=== PATIENT | male | born 1950 | race Caucasian/White ===

== ENCOUNTER → 2018-03-30 | Outpatient (CLI) | payer MEDICARE, OTHER | LOC: M EKG 14:30 | DX: Z01.818 Encounter for other preprocedural examination (principal); K44.9 Diaphragmatic hernia without obstruction or gangrene | CPT/HCPCS: 93005 ==

== ENCOUNTER 2018-04-02 08:02 | Day surgery (SDC) | payer MEDICARE, OTHER ==
[2018-04-02] MEDS ORDERED: MIDAZOLAM INJ 2 MG/2 ML VIAL (J2250) As Ordered (09:05)
[2018-04-02] MEDS ORDERED: PROPOFOL 200 MG/20 ML VIAL As Ordered (09:05)
[2018-04-02] MEDS ORDERED: dexameTHASONE 4 MG/ML 1ML VIAL (J1100) As Ordered (09:05)
[2018-04-02] MEDS ORDERED: LIDOCAINE 2% INJ 100 MG/5 ML SDV (FOR ANES.) As Ordered (09:05)
[2018-04-02] MEDS ORDERED: ROCURONIUM BROMIDE 50 MG/5 ML VIAL As Ordered ×2 (09:05→11:04)
[2018-04-02] MEDS ORDERED: fentaNYL 250 MCG/5 ML INJECTION (J3010) As Ordered (09:05)
[2018-04-02] MEDS ORDERED: ONDANSETRON 4MG/2ML VIAL (J2405) As Ordered (09:05)
[2018-04-02] MEDS: LR 1,000 ML IV (09:50)
[2018-04-02] MEDS: ceFAZolin SOD 1 GM in D5W MINI-BAG PLUS 50 ML IV (10:30)
[2018-04-02] MEDS ORDERED: ePHEDrine SULFATE 25 MG/5 ML(5MG/ML) SYRINGE As Ordered (10:44)
[2018-04-02] MEDS: BUPIVACAINE/EPIN 0.25% 30 ML VIAL As Ordered (11:01)
[2018-04-02] MEDS ORDERED: GLYCOPYRROLATE INJ 0.2 MG/ML 2 ML VIAL As Ordered (11:11)
[2018-04-02] MEDS ORDERED: KETOROLAC 60 MG/2 ML VIAL (J1885) As Ordered (11:20)
[2018-04-02] MEDS ORDERED: NEOSTIGMINE 10 MG/10 ML VIAL (J2710) As Ordered (11:20)
[2018-04-02] MEDS ORDERED: HYDROmorphone HCL 2 MG/ML 1ML VIAL (J1170) As Ordered (11:21)
[2018-04-02] MEDS ORDERED: NORCO, ANEXSIA 5/325MG TABLET (HYDROcodone/ACETAMINOPHEN) PO (12:30)
[2018-04-02] MEDS ORDERED: fentaNYL 100 MCG/2 ML INJECTION (J3010) IV ×2 (12:30→16:00)
[2018-04-02] MEDS ORDERED: LR 1,000 ML IV ×3 (12:30→16:00)
[2018-04-02] MEDS ORDERED: PERCOCET 5MG/325MG TAB PO ×2 (12:30→16:00)
[2018-04-02] MEDS: ONDANSETRON 4MG/2ML VIAL (J2405) IV (12:37)
[2018-04-02] MEDS ORDERED: ONDANSETRON 4MG/2ML VIAL (J2405) IV ×2 (12:45→16:00)
[2018-04-02] MEDS ORDERED: METOCLOPRAMIDE INJ 10MG/2ML VIAL (J2765) As Ordered ×2 (12:47→15:55)
[2018-04-02] MEDS ORDERED: METOCLOPRAMIDE INJ 10MG/2ML VIAL (J2765) IV ×2 (13:15→16:00)
== END 2018-04-02 17:25 | disposition home or self-care (01) ==
LOC: M SDC 08:02
DX: K40.90 Unilateral inguinal hernia, without obstruction or gangrene, not specified as recurrent (principal); K44.9 Diaphragmatic hernia without obstruction or gangrene
CPT/HCPCS: 49650

== ENCOUNTER → 2018-09-22 | Outpatient (CLI) | payer MEDICARE, OTHER ==
[~2018-09-22] MED LIST: /ESOM40CA; ALLE10TA2 PO; VICO5TAB
[2018-09-22 19:17] LABS: BLOOD UREA NITROGEN 15 MG/DL (7-18); CALCIUM LEVEL 9.3 MG/DL (8.8-10.2); CARBON DIOXIDE LEVEL 32 MEQ/L (21-32); CHLORIDE LEVEL 102 MEQ/L (98-107); CREATININE FOR GFR 1.08 MG/DL (0.70-1.30); GLOMERULAR FILTRATION RATE > 60.0 (>49); GLUCOSE, FASTING 81 MG/DL (70-100); HEMATOCRIT 48.1 % (42.0-52.0); MEAN CORPUSCULAR HEMOGLOBIN 30.7 pg (27.0-33.0); MEAN CORPUSCULAR HGB CONC 33.3 g/dl (32.0-36.5); MEAN CORPUSCULAR VOLUME 92.1 fl (80.0-96.0); PLATELET COUNT, AUTOMATED 271 10^3/uL (150-450); POTASSIUM SERUM 4.4 MEQ/L (3.5-5.1); RED BLOOD COUNT 5.22 10^6/uL (4.30-6.10); SODIUM LEVEL 140 MEQ/L (136-145); WHITE BLOOD COUNT 7.9 10^3/uL (4.0-10.0)
[2018-09-22 19:25] LABS: INR 1.01; PROTHROMBIN TIME 13.4 SECONDS (12.1-14.4)
[2018-09-22 19:26] LABS: PARTIAL THROMBOPLASTIN TIME 35.4 SECONDS (25.4-37.6)
--- NOTE | 2018-09-23 07:47 | REP ---
Clinical: Preoperative assessment . Comparison: 11/05/2009 . Technique: PA and lateral. Findings: The mediastinum and cardiac silhouette are normal. Airway is patent and midline. The lung acuna are clear and without acute consolidation, effusion, or pneumothorax. The skeletal structures are intact and normal. Impression: 1. No acute cardiopulmonary process. Electronically Signed by Evaristo Ovalles MD 09/22/2018 02:14 P
== END ==
LOC: M SMT 13:31
PROVIDERS: ATTEND Nurse Practitioner Family
DX: Z01.818 Encounter for other preprocedural examination (principal); N47.1 Phimosis

== ENCOUNTER 2018-10-07 11:33 | Day surgery (SDC) | payer MEDICARE, OTHER ==
[~2018-10-07] VITALS: Ht 170.2 cm; Wt 82.6 kg
[~2018-10-07 11:33] MED LIST changes: -/ESOM40CA; -ALLE10TA2 PO; +LORA-753 PO; +LR 1,000 ML IV SCH; +NEXI1CAP3
[2018-10-07] MEDS ORDERED: PROPOFOL 200 MG/20 ML VIAL As Ordered ONE (13:15)
[2018-10-07] MEDS ORDERED: METOCLOPRAMIDE INJ 10MG/2ML VIAL (J2765) As Ordered ONE (13:15)
[2018-10-07] MEDS ORDERED: LIDOCAINE 2% INJ 100 MG/5 ML SDV (FOR ANES.) As Ordered ONE (13:15)
[2018-10-07] MEDS ORDERED: MIDAZOLAM INJ 2 MG/2 ML VIAL (J2250) As Ordered ONE (13:16)
[2018-10-07] MEDS ORDERED: fentaNYL 100 MCG/2 ML INJECTION (J3010) As Ordered ONE (13:16)
[2018-10-07] MEDS ORDERED: BACITRACIN OINT 30GM As Ordered ONE (13:32)
[2018-10-07] MEDS ORDERED: KETOROLAC 60 MG/2 ML VIAL (J1885) As Ordered ONE (14:43)
[2018-10-07] MEDS ORDERED: HYDROMORPHONE HCL 0.5 MG/ 0.5 ML SYRINGE (J1170 PER 1) IV PRN (15:45)
[2018-10-07] MEDS ORDERED: LR 1,000 ML IV SCH (15:45)
[2018-10-07] MEDS ORDERED: NORCO, ANEXSIA 5/325MG TABLET (HYDROcodone/ACETAMINOPHEN) PO PRN (15:45)
[2018-10-07] MEDS ORDERED: PERCOCET 5MG/325MG TAB PO PRN (15:45)
[2018-10-07] MEDS ORDERED: ONDANSETRON 4MG/2ML VIAL (J2405) IV PRN (15:45)
--- NOTE | 2018-10-07 15:47 | ROOPDOC ---
[facility] Report Of Operation Report of Operation DATE OF PROCEDURE: 10/07/18 PREPROCEDURE DIAGNOSIS: Phimosis. POSTPROCEDURE DIAGNOSIS: Phimosis. OPERATIVE PROCEDURE: Circumcision. SURGEON: Keysha Saldivar MD POUNCING [employer]HE OPERATOR: None. ANESTHESIA: General OPERATIVE INDICATIONS: This is a 67-year-old male with phimosis making it difficult for him to retract his foreskin. He was brought to the operating room today for the above listed procedure. DESCRIPTION OF PROCEDURE: The patient was brought to the operating room and general anesthesia was induced. Prophylactic antibiotics were then infused. He was then placed in the supine position in preparation for the circumcision. At this point, circumcision incisions were made at the level of the coronal sulcus with the foreskin completely retracted downwards as well as on the outside of the foreskin with it pulled over the glans of penis. The circumcising incisions were then connected using electrocautery. All the foreskin in between the two incisions was then removed using electrocautery. Once that was done, hemostasis was obtained using electrocautery. Once satisfied with hemostasis, the remaining skin of the penile shaft was reapproximated to the glans using interrupted #2-0 chromic sutures. Once that was done, dressings were applied and this marked conclusion of procedure. The patient was then awakened from anesthesia and transported to recovery room in stable condition. ESTIMATED BLOOD LOSS: 10 mL COMPLICATIONS: None. SPECIMENS: Foreskin. PLAN: The patient will followup in clinic in a few weeks for a postoperative visit. KEYSHA SALDIVAR MD Oct 07, 2018 15:47
[2018-10-07] MEDS: fentaNYL 100 MCG/2 ML INJECTION (J3010) IV PRN ×2 (15:55→16:06)
[2018-10-07 18:10] VITALS: BP 160/76
== END 2018-10-07 18:15 | disposition home or self-care (01) ==
LOC: M SDC 11:33
PROVIDERS: ATTEND Urology
DX: N47.1 Phimosis (principal); K44.9 Diaphragmatic hernia without obstruction or gangrene; K21.9 Gastro-esophageal reflux disease without esophagitis; F17.290 Nicotine dependence, other tobacco product, uncomplicated
CPT/HCPCS: 54161; 88304; J0690; J1885; J2250; J2405; J2765; J3010

== ENCOUNTER → 2018-10-21 | Outpatient (CLI) | payer MEDICARE, OTHER ==
[~2018-10-21] MED LIST changes: -LR 1,000 ML IV SCH
== END ==
LOC: M SMT 09:50
PROVIDERS: ATTEND Nurse Practitioner Family
DX: Z12.5 Encounter for screening for malignant neoplasm of prostate (principal)
CPT/HCPCS: 36415; G0103; G0463